=== PATIENT | male | born 1970 | race African-American/Black ===

== ENCOUNTER 2016-12-11 20:08 | Emergency (ER) | payer BC ==
[~2016-12-11] VITALS: Ht 170.2 cm; Wt 66.0 kg
[2016-12-11 20:10] VITALS: BP 133/85; PULSE 92; RESP 16; TEMP 98.8; O2SAT 98
--- NOTE | 2016-12-11 20:40 | PD ---
HPI Chief Complaint: Headache Time Seen by Provider: 20:19 Travel History International Travel<30 days: No Contact w/Intl Traveler<30days: No Traveled to known affect area: No History of Present Illness HPI Patient comes in complaining of intermittent headaches over the past 4 years anytime he gets stressed and occasionally when it gets little hot outside. Patient states this resolves after he calms down or with resting. Patient takes [id number] medication which helps as well. Patient last had one 2 days ago after his child's mother gave him some bad news. Patient denies any nausea, vomiting, dizziness, change in vision, numbness or tingling, chest pain , shortness of breath, loss or change in bowel or bladder, or other symptoms. Patient denies any symptoms currently. History Past Medical Histgory Medical History: Denies Significant Hx Social History Alcohol Use: No Tobacco Use: Yes (BLACK AND MILDS OCCASSIONAL) Allergies-Medications (Allergen,Severity, Reaction): Coded Allergies: No Known Allergies (Verified , 12/11/16) Reported Meds & Prescriptions Reported Meds & Active Scripts Active No Active Prescriptions or Reported Medications Review of Systems Except as stated in HPI: all other systems reviewed are Neg Physical Exam Narrative GENERAL: Well-developed, well nourished, in no acute distress, and non-ill appearing. SKIN: Focused skin assessment warm and dry. HEAD: Atraumatic. Normocephalic. EYES: Pupils equal and round. EOMI. No scleral icterus. No injection or drainage. ENT: No nasal bleeding or discharge. Mucous membranes pink and moist. NECK: Trachea midline. Supple. No nuclear rigidity. RESPIRATORY: No accessory muscle use. No respiratory distress. MUSCULOSKELETAL: No obvious deformities. No clubbing. No cyanosis. No edema. Full range of motion. NEUROLOGICAL: Awake and alert. No obvious cranial nerve deficits. Motor grossly within normal limits. Normal speech. PSYCHIATRIC: Appropriate mood and affect; insight and judgment normal. Data Data Last Documented VS Vital Signs Date Time Temp Pulse Resp B/P Pulse Ox O2 Delivery O2 Flow Rate FiO2 12/11/16 20:10 98.8 92 16 133/85 98 Room Air MDM Medical Screen Exam Complete: Yes Emergency Medical Condition: No Narrative Course History and physical exam findings are not consistent with an emergent medical condition. He was given the option of receiving additional care, but has declined. Therefore the appropriate counseling recommendations were discussed with the patient and he was instructed to follow-up with his primary care physician as soon as possible for reevaluation. Patient was also informed of community resources from which he can obtain additional care. He is agreeable and verbalizes an understanding of the proposed plan. The patient states he will immediately return to the emergency department if his current complaints do not improve, new symptoms arise, or emergent condition develops. Patient ambulated out of the emergency department without difficulty. Primary Impression: Encounter for medical screening examination Scripts No Active Prescriptions or Reported Meds Disposition: 07 EDGO-ED USE ONLY Olayinka Sampson Dec 11, 2016 20:40
== END 2016-12-11 20:37 | disposition left against medical advice (07) ==
LOC: NEPK 20:08
DX: R51 Headache (principal)
CPT/HCPCS: 99281